=== PATIENT | female | born 1950 | race Caucasian/White ===

== ENCOUNTER 2024-10-13 16:28 | Outpatient (REF) | payer MEDICARE, SELFPAY ==
[2024-10-13 17:34] LABS: C Reactive Protein 0.55 mg/dL (< or = 0.50)
[2024-10-13 18:04] LABS: Erythrocyte Sedimentation Rate 3 MM/HR (0-20)
== END 2024-10-13 16:29 | disposition home or self-care (01) ==
LOC: HO.LAB 16:28
PROVIDERS: PCP Internal Medicine; Visit Provider Registered Nurse
DX: G43.909 Migraine, unspecified, not intractable, without status migrainosus (principal)
CPT/HCPCS: 36415; 85652; 86140

== ENCOUNTER 2025-05-29 13:55 | Outpatient (AMB) | payer MEDICARE, SELFPAY ==
--- NOTE | 2025-05-29 14:19 | MHC.OFFVIS ---
Vital Signs 05/29/25 14:19 Height 5 ft 4 in Intake Visit Reasons: bets Allergies No Known Allergies Allergy (Verified 05/29/25 14:30) Medication List - Last Reconciled 05/29/25 by Marge Marie CNP bupropion HCl XL 300 mg PO DAILY bupropion HCl XL 150 mg PO DAILY empagliflozin (Jardiance) 10 mg PO DAILY famotidine 20 mg PO BID fenofibrate 160 mg PO DAILY glipizide 10 mg PO BID lisinopril 5 mg PO DAILY metformin ER 1,000 mg PO DAILY mirtazapine 7.5 mg PO BEDTIME primidone 50 mg orally 1 tablet twice a day and 2 tablets at bedtime; propranolol 40 mg PO BID simvastatin 80 mg PO BEDTIME vibegron (Gemtesa) 75 mg PO DAILY HPI Comments Details: Tremors were still there. Medication helped some. Tremors were increased with stress. She was under stress related to living with her brother. No functional impairment. No difficulty eating or drinking. She stopped working with therapist. She had occasional stinging sensation to right leg and occasional warm feeling to right leg, most often at night. It last few minutes. There was no significant pain and it was not significantly bothersome. It did not disrupt sleep. No numbness or tingling. She was not monitoring her blood sugar and it had not been well controlled in the past. She said she was having ongoing low back pain from pinched nerve and said she was looking for drugs. It did not radiate into legs. She was referred to chiropractor from PCP and was waiting for appointment. She apparently saw pain management in the past and had injections which did not help. She was also having some arthritis pains in knees. She started with intermittent stinging sensation and warm feeling to right leg when laying down at night in the summer of 2023. Blood sugar not well controlled. She has hx of benign essential tremors for 12+ years getting worse lately and affecting her ability to write. Her tremors are long-standing and being treated with propranolol and primidone. Tremors increase when nervous. On 01/28/21 she was laid back flat for a dental procedure and when she was made to sit up, she collapsed backwards in the chair became sweaty with vertigo and vomiting. She could not get up. Gradually the symptoms went away. A week later she turned in the shower and suddenly the room spun around and she fell out of the shower. She's had minor lightheaded dizziness but no further vertigo lying in bed and getting up or turning. She has no hearing problems. [facility] Medical History (Updated 05/29/25 @ 14:39 by Marge Marie CNP) Migraine Peripheral neuropathy Benign essential tremor Review of Systems Const Denies chills, Denies daytime sleepiness, Reports difficulty sleeping, Denies fatigue, Denies fever(s), Denies frequent falls, Denies headache(s), Denies increased appetite, Denies poor appetite, Denies snoring, Denies weakness, Denies weight gain and Denies weight loss Eyes Denies loss of vision ENT Denies vertigo, Reports dizziness, Denies headache(s) and Denies neck pain Card Denies chest pain at rest, Denies chest pain with activity, Denies syncope, Denies leg edema, Denies palpitations, Denies dyspnea and Denies dyspnea on exertion Resp Denies cough, Denies dyspnea, Denies dyspnea on exertion and Denies snoring GI Denies abdominal pain, Denies constipation, Denies heartburn, Denies diarrhea and Denies nausea Denies urinary frequency, Denies urinary incontinence and Denies urinary urgency Musc Denies abnormal gait, Reports back pain, Reports myalgias, Denies arthralgias, Denies neck pain, Denies numbness and Denies tingling Neuro Denies abnormal gait, Denies vertigo, Reports dizziness, Denies syncope, Denies frequent falls, Denies headache(s), Denies lack of coordination, Denies loss of vision, Reports memory loss, Denies numbness, Denies Other visual disturbances, Denies restless legs, Denies seizure-like activity, Denies tingling, Denies paresthesias, Reports tremor(s) and Denies weakness Psych Reports anxiety, Reports depression, Denies auditory hallucinations, Reports memory loss and Denies visual hallucinations Endo Denies fatigue and Denies palpitations Physical Exam Const Other: General Appearance:? normal, in no acute distress. Heart:? S1, S2 normal, no murmurs. Lungs:? clear anteriorly and posteriorly. Musculoskeletal:? normal. Extremities:? no edema. Psych:? alert, oriented, cognitive function intact, cooperative with exam. Neuro Other: Abnormal Neurological Findings:?Tremors of her head and upper extremities right greater than left 8 Hz frequency moderate amplitude. No cogwheel rigidity or bradykinesia. DTRs trace. Decreased vibration and pinprick?to mid tarsal bilaterally. In wheelchair Mental Status: alert and oriented X 3. Normal attention, orientation, memory, and affect. Cranial Nerves: Pupils are equal, round, and reactive to light. External ocular muscles are intact. Visual moreno are full, no ptosis. Face is symmetrical, no facial weakness or droop. Facial sensations are normal. Tongue protrudes in midline. Palate elevates symmetrically. Shoulder shrugging is normal Motor Examination: DTRs trace. Plantars are flexor. Straight Leg Raisin degrees. Sensory Exam: Decreased vibration and pinprick to BLE Coordination: No ataxia. No titubation. Qibsgc-[id number], rrcx-dqcr-thyr test, and rapid alternating movements were normal. Gait Exam: In wheelchair Cerebellar Signs: [id number] is okay. Extrapyramidal System: Tremor as above. No rigidity with normal facial expressions. No bradykinesia. No bradyphrenia. Normal arm swing and posture. No propulsion or retropulsion. Speech: Normal. No dysphasia or dysarthria. Assessment & Plan Assessment & Plan (1) Benign essential tremor: Code(s): G25.0 - Essential tremor Category: Medical Plan: Continue propranolol 40mg 1 tablet twice a day. Continue primidone 50mg 1 tablet twice a day and 2 tablets at bedtime. (2) Peripheral neuropathy: Code(s): G62.9 - Polyneuropathy, unspecified Category: Medical Qualifiers: Peripheral neuropathy type: polyneuropathy, unspecified Qualified Code(s): G62.9 - Polyneuropathy, unspecified Plan: No significant pain or discomfort and medication was not indicated at this time. Control blood sugar. Stay physically active. Coding Level of Care Code Est Pt Level 4 (37395) Diagnoses Benign essential tremor G25.0 Peripheral polyneuropathy G62.9 Peripheral neuropathy type: polyneuropathy, unspecified
--- OUTSIDE RECORDS SUMMARY | 2025-05-29 14:47 | XMS_ITS | Clinical Summary ---
Author Organization [facility] Address [address] [place] [id number] Phone Care Team Providers Care Pier Master Name Role Phone Colin Joyner MD Primary Care Provider [phone] Social History Tobacco Use Types Packs/Day Years Used Date Smoking Tobacco: Never Assessed Education Answer Date Recorded Are you interested in more education? Not on jorge e 03/06/2023 Are you concerned about learning? Not on file 03/06/2023 No 03/06/2023 No 03/06/2023 Digital Access Answer Date Recorded No 04/07/2023 No 04/07/2023 Reliable internet access at home? Not on file 04/07/2023 Device with a working camera? Not on file Comments Unknown Sex and Gender Information Value Date Recorded Sex Assigned at Not on file Legal Sex Female 10:21 AM EDT Gender Identity Not on file Sexual Orientation Not on file Plan of Treatment Not on file Medical Devices Not on file Insurance [employer] Member Subscriber Plan / Payer (Ef fective 2020-Present) Name:Kiesha Kothari Relation to Subscriber:Self Name:Kiesha Kothari Payer ID:[id number] (NAIC) Type:Medicare Address: [place] [id number] [place] [employer] Member Subscriber Plan / Payer (Ef fective 2020-Present) Name:Kiesha Kothari Relation to Subscriber:Self Name:Kiesha Kothari Payer ID:[id number] (NAIC) Type:Medicare Address: [place] [id number] [place] [employer] [place] [place] [employer] [place] [employer] [facility] [place] [facility] Care Teams Pier Master Relationship Specialty Start Date End Date Colin Joyner MD [address] [place] [id number] PCP - General Internal Medicine 05/21/20 Additional Source Comments The information contained in this document represents components of the legal health record. It is not the complete legal health record.[facility]
--- OUTSIDE RECORDS SUMMARY | 2025-05-29 14:47 | XMS_ITS | Clinical Summary ---
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 04/21/20 24 Active cyanocobalamin (VITAMIN B-12) 100 mcg tablet Take 1 tablet (100 mcg total) by mouth 2 (two) times a day. Active primidone (MYSOLINE) 50 mg tablet Take 1 tablet (50 mg total) by mouth. 02/25/20 24 Active propranoloL (INDERAL) 40 mg tablet Take 1 tablet (40 mg total) by mouth 2 (two) times a day. 04/21/20 24 Active blood-glucose meter kit To check blood sugars daily 06/02/20 23 Active lancets 21 gauge misc Use to test blood sugar twice daily / test fasting am and 2 hours after dinner / DX: E11.29 02/21/20 23 Active multivitamin tablet Take 1 tablet by mouth 1 (one) time each day. 12/01/20 23 Active blood sugar diagnostic (LurnQ Verio test strips) test strip USE TO TEST BLOOD SUGAR TWICE DAILY / TEST FASTING IN MORNING AND 2 HOURS AFTER DINNER 07/01/20 23 Active EpiPen 2-Syd 0.3 mg/0.3 mL injection Inject 0.3 mL (0.3 mg total) into the thigh. 07/05/20 24 Active escitalopram (LEXAPRO) 5 mg tablet Take 1 tablet (5 mg total) by mouth 1 (one) time each day in the morning. 03/10/20 24 Active vibegron (Gemtesa) 75 mg tablet tablet Take 1 tablet (75 mg total) by mouth 1 (one) time each day. Active loratadine (CLARITIN) 10 mg tablet Take 1 tablet (10 mg total) by mouth 1 (one) time each day. 90 each 1 10/12/20 24 Active propranoloL (INDERAL) 10 mg tabletIndicatio ns:Essential tremor TAKE 1 TABLET BY MOUTH TWICE A DAY 180 tablet 1 11/08/20 24 Active buPROPion XL (WELLBUTRIN XL) 150 mg 24 hr tablet Take 1 tablet (150 mg total) by mouth 1 (one) time each day. 90 tablet 1 11/22/19 25 Active Jardiance 10 mg tablet TAKE 1 TABLET BY MOUTH EVERY DAY 90 tablet 1 12/27/19 25 Active simvastatin (ZOCOR) 80 mg tablet TAKE 1 TABLET BY MOUTH EVERYDAY AT BEDTIME 90 tablet 1 12/27/19 25 Active metFORMIN XR (GLUCOPHAGE-XR) 500 mg 24 hr tablet TAKE 2 TABLETS (1,000 MG TOTAL) BY MOUTH 1 (ONE) TIME EACH DAY. 180 tablet 02/01/20 25 Active fenofibrate (LOFIBRA) 160 mg tabletIndicatio ns:Pure hypercholestero lemia, unspecified TAKE 1 TABLET BY MOUTH EVERY DAY 90 tablet 1 03/06/20 25 Active lisinopriL (PRINIVIL,ZESTR IL) 2.5 mg tablet Take 2 tablets (5 mg total) by mouth 1 (one) time each day. 90 tablet 1 03/06/20 25 Active famotidine (PEPCID) 20 mg tablet Take 1 tablet (20 mg total) by mouth 2 (two) times a day. 90 tablet 1 03/29/20 25 Active Skyrizi 150 mg/mL pen injector INJECT ONE PEN UNDER THE SKIN EVERY 12 WEEKS FOR MAINTANENCE 01/27/20 25 Active diclofenac (VOLTAREN) 1 % topical gel Apply 1 g topically 1 (one) time each day. 50 g 1 04/19/20 25 Active buPROPion XL (WELLBUTRIN XL) 300 mg 24 hr tablet TAKE 1 TABLET BY MOUTH 1 TIME EACH DAY. 90 tablet 05/09/20 25 Active glipiZIDE (GLUCOTROL) 10 mg tablet TAKE 1 TABLET BY MOUTH 2 TIMES A DAY BEFORE MEALS. 180 tablet 05/09/20 25 Active buPROPion XL (WELLBUTRIN XL) 300 mg 24 hr tablet Take 1 tablet (300 mg total) by mouth 1 (one) time each day. 90 tablet 1 10/27/20 24 025 Discontinued glipiZIDE (GLUCOTROL) 10 mg tablet Take 1 tablet (10 mg total) by mouth 2 (two) times a day before meals. 60 each 5 11/01/20 24 025 Discontinued Active Problems Problem Noted Date Diagnosed Date Lumbar degenerative disc disease 06/10/2023 Overview (08/11/2024): Last Assessment & Plan: Ms. Patel describes years of low back pain worse whenever she is standing or walking or active. Her MRI of the lumbar spine shows desiccation and significant loss of disc height at L2-3, L3-4, and L4-5. She really would not consider surgical intervention and I do not think that a 3 level lumbar fusion would be on offer from Dr. Candelaria. We talked about conservative measures including NSAIDs, acupuncture, physical therapy, yoga, and inversion table, getting as close as possible to her ideal body weight, and chiropractic treatment. She accepted a paper on Natural Anti-inflammatory Agents for Pain Relief in Athletes as well as a prescription for physical therapy. She is welcome to follow-up with us in the future on an as- needed basis. Assessment & Plan (09/21/2024 12:19 PM EST): Advised her to follow-up with physiatry. She also has an upcoming appoint with rheumatology. Tubular adenoma 01/02/2023 Adrenal adenoma, left 09/29/2022 Assessment & Plan (01/02/2025 10:04 AM EST): Currently being monitored by endocrinology for her adrenal adenoma. I have strongly advised the patient to contact her putty glazer. Fibroid 09/29/2022 Sleep disorder 08/29/2022 Overview (08/11/2024): Last Assessment & Plan: We do not have the sleep study but patient states that she was diagnosed with sleep apnea. 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 Recurrent cold sores 07/18/2022 Abnormal stress test 07/10/2022 History of COVID-19 02/25/2022 Primary osteoarthritis of both knees 07/26/2021 Heart murmur 05/24/2021 Overview (08/11/2024): Last Assessment & Plan: She has no aortic valve stenosis. The murmur is likely caused by the combination of valvular calcification and elevated LVOT gradient. The murmur today is not as loud as last office visit. Hydration and beta-saud will be helpful for this condition. PVC's (premature ventricular contractions) 03/18 Overview (08/11/2024): Last Assessment & Plan: Left ventricular size and systolic function are normal. She has no symptoms to suggest ischemia. Her heart rate is running on lower side overall. We will continue low-dose propranolol. Syncope 03/14/2021 Positive AMANDA (antinuclear antibody) 01/31/2020 Tremor, essential 01/31/2020 Assessment & Plan (01/02/2025 10:04 AM EST): Advised to follow-up with her neurologist. Continue propranolol and primidone. Hypertension 04/13/2018 Assessment & Plan (01/02/2025 10:04 AM EST): Follow low-sodium diet. Continue lisinopril. She is also on propranolol which helps with her tremors and blood pressure. Assessment & Plan (09/21/2024 12:19 PM EST): She follow low-sodium diet. Continue current regimen of lisinopril. Type 2 diabetes mellitus wit h renal manifestations ([facility] V24, [facility] V28) 04/13/2018 Assessment & Plan (01/02/2025 10:04 AM EST): Diabetic diet discussed. Continue current regimen of metformin, glipizide, Jardiance. She is on MALIKA inhibitor for microalbuminuria. Orders: Hemoglobin A1c; Future Comprehensive metabolic panel; Future Assessment & Plan (09/21/2024 12:19 PM EST): Diabetic diet discussed. She will continue current regimen of metformin, glipizide, Januvia. She is on an MALIKA inhibitor for microalbumin. Orders: Microalbumin, protein and creatinine with ratio, urine, random; Future Vitamin D deficiency 02/04/2018 CKD (chronic kidney disease) , stage III ([facility] V24, [facility] V28) 02/03/2018 Hypercholesterolemia 02/03/2018 Assessment & Plan (01/02/2025 10:04 AM EST): Follow low-cholesterol diet. Continue simvastatin, fenofibrate. Her total cholesterol and LDL are normal but your triglycerides are still elevated at 320. Patient's LFTs are normal. Assessment & Plan (09/21/2024 12:19 PM EST): She will follow low-cholesterol diet. Continue current meds simvastatin. Recurrent major depression ([facility] V24) 018 Diverticulosis 09/22/2017 Overview (08/11/2024): Diverticulitis 09/22/2017 Hearing loss 12/07/2012 Cholelithiasis 01/14/2012 Fatty liver 05/14/2011 Encounters Date Type Department Care Team Description 05/22/2025 Telephone [facility] [address] [place] [address] Colin Joyner MD Referral 05/17/2025 Telephone [facility] - [facility] [address] [place] [address] Colin Joyner MD Fitting for DME (Faxed Dme from [facility]) 05/15/2025 [facility] [address] [phone] Colin Joyner MD Fitting for DME ([facility]) 05/15/2025 [facility] [address] [phone] Colin Joyner MD information needed about otc medicine 05/11/2025 [facility] [address] [phone] Colin Joyner MD Glucose Monitor 05/09/2025 [facility] [address] [phone] Colin Joyner MD MED REVIEW APPT 05/01/2025 [facility] [address] [phone] Roxi Colon [place] Medicare Annual Wellness Visit Subsequent (AWV DUE after 03/28/2025) 04/26/2025 [facility] [address] [phone] Colin Joyner MD faxed DME ([facility]) 04/12/2025 [facility] [address] [phone] Colin Joyner MD Medication Problem 04/11/2025 10:30 AM EDT Office Visit Walk-In Clinic - [address] [phone] Milo Murillo PA Bronchitis (Primary Dx) 04/11/2025 [facility] [address] [phone] Colin Joyner MD Cough 04/07/2025 Telephone Internal Medicine - [address] [phone] Coiln Joyner MD Cough 04/06/2025 Telephone Internal Medicine - [address] [phone] Colin Joyner MD DME DENIAL 03/30/2025 Telephone Internal Medicine [address] [phone] Colin Joyner MD Cough 03/28/2025 Telephone Internal Medicine [address] [phone] Colin Joyner MD Chills 03/27/2025 10:30 AM EDT Office Visit Internal Medicine [address] [phone] Sandee Carrion NP Abdominal pain, unspecified abdominal location (Primary Dx); Nausea and vomiting, unspecified vomiting type; Acute gastroenteritis 03/27/2025 Telephone Internal [address] [phone] Colin Joyner MD Vomiting; Abdominal Pain 03/26/2025 5:21 PM EDT - 03/26/2025 8:47 PM EDT Emergency [facility] [address] [place] [address] Gagan Ahmadi MD Discharge Disposition: Left Against Medical Advice 03/23/2025 Telephone Internal Medicine [address] [phone] Colin Joyner MD Nasal Congestion (RUNNY NOSE when eating) 03/17/2025 Telephone Internal Medicine [address] [phone] Colin Joyner MD DME Request ([facility]) 03/13/2025 Telephone [facility] [address] [place] [address] Colin oJyner MD Referral (EXTERNAL DERMATOLOGY ) from Last 3 Months Immunizations Name Administration Dates Next Due H1N1 Inj Preservative Free 12/05/2009 Influenza trivalent, 0.5mL ( Fluad) 65yo and older 01/02/2025 Influenza trivalent, 0.5mL ( Fluzone High-dose) 65yo and older 07/31/2023,07/18/2022,07/26/2021,07/16 Influenza, Unspecified 07/10/2020 Pfizer (ages 12 & older) Biv alent, COVID-19 11/15/2022 Pfizer SARS-CoV-2 COVID-19, mRNA, LNP-S, preservative free 06/29/2022 Pneumococcal conjugate 13 va lent (Prevnar 13, PCV13) 2mo and older 07/30/2016 Pneumococcal polysaccharide 23 valent (Pneumovax 23) 2yo and older 12/08/2019,06/24/2012,03/30/2007 Tdap Tetanus diptheria acell ular pertussis (Boostrix; Adacel) 7yo and older 06/10/2014,05/05/2007 Zoster Live 06/13/2011 Surgical History Surgery Date Site/Laterality Comments MULTIPLE TOOTH EXTRACTIONS PROCEDURE: HISTORICAL DENTAL EXTRACTION Medical History Medical History Date Comments Arthritis 02/03/2018 DX:Arthritis Cholelithiasis 01/14/2012 DX:Cholelithiasi s CKD (chronic kidney disease) , stage III ([facility] V24, [facility] V28) 02/03/2018 DX:CKD (chronic kidney dise ase), stage III (HCC) Fatty liver 05/14/2011 DX:Fatty liver Foreign body in right foot 04/14/2018 DX:Fo reign body in right foot Hearing loss 12/07/2012 DX:Hearing loss Hypercholesterolemia 02/03/2018 DX:Hypercho lesterolemia Hypertension 04/13/2018 DX:Hypertension Obesity 01/30/2017 DX:Obesity Recurrent major depression ([facility] V24) 02/04/20 18 DX:Recurrent major depression (HCC) Type 2 diabetes mellitus wit h renal manifestations ([facility] V24, [facility] V28) 04/13/2018 DX:Type 2 diabetes mellitus with renal manifestations ([facility]) Vitamin D deficiency 02/04/2018 DX:Vitamin D deficiency Diverticulosis 09/22/2017 DX:Diverticulosi s; COMMENT: Diverticulitis 09/22/2017 Tremor, essential 01/31/2020 DX:Tremor, ess ential Medical orders for life-sust aining treatment (MOLST) form in chart 12/15/2022 DX:Medical orders for life-sustaining treatment (MOLST) form in chart; COMMENT: MOLST form completed 12/15/2022 Cardiopulmonary resuscitation - attempt resuscitation Ventilation for a patient in respiratory distress - do not intubate or ventilate and use noninvasive ventilation (CPAP) Transfer to hospital - do not transfer to hospital (unless needed for comfort) Dialysis - use dialysis but short ter* Family History Medical History Relation Name Comments Schizophrenia Brother Colon cancer Father in his 80's Heart attack Father Brain Aneurysm Mother Breast cancer Mother Crohn's disease Mother Breast cancer Sister 1 Depression Sister 1 Alcohol abuse Sister 2 IBS,cirrhosis, breast cancer No Known Problems Sister 3 Relation Name Status Comments Brother Alive Father Maternal Grandfather Maternal Grandmother Mother Paternal Grandfather Paternal Grandmother Sister 1 Sister 2 Sister 3 Alive Social History Tobacco Use Types Packs/Day Years Used Date Smoking Tobacco: Never Smokeless Tobacco: Never Tobacco Cessation:Counseling Given: Not Answered Alcohol Use Standard Drinks/Week Comments No 0 (1 standard drink = 0.6 oz pur e alcohol) Comments No Sex and Gender Information Value Date Recorded Sex Assigned at Not on file Legal Sex Female 8:32 AM EST Gender Identity Not on file Sexual Orientation Not on file Obstetrics History Last Filed Vital Signs Vital Sign Reading Time Taken Comments Blood Pressure 110/74 04/11/2025 10:48 AM EDT Pulse 54 04/11/2025 10:48 AM EDT Temperature 36.6 C (97.8 F) 04/11/2025 10:48 AM EDT Respiratory Rate 18 03/26/2025 6:35 PM EDT Oxygen Saturation 94% 04/11/2025 10:48 AM EDT Inhaled Oxygen Concentration - - Weight 95.4 kg (210 lb 6.4 oz) 03/27/2025 10:04 AM EDT Height 160 cm (5' 3 ) 03/27/2025 10:04 AM EDT Body Mass Index 37.27 03/27/2025 10:04 AM EDT Plan of Treatment Upcoming Encounters Date Type Department Care Team (Late st Contact Info) Description 06/09/2025 1:15 PM EDT Office Visit Internal Medicine - [address] [phone] Mago Valencia, BECKA [address] [place] [phone] 09/05/2025 11:45 AM EDT Office Visit Nephrology - [address] [phone] Kolton Rashid MD [address] [phone] 10/10/2025 2:00 PM EST Office Visit Endocrinology - [address] [phone] Marie Galeas PA [address] [place] [address] Health Maintenance Due Date Last Done Comments Diabetes: Annual Foot Exam 1961 RSV Immunization Adult Patients (1 - Risk 60-74 years 1-dose series) 2011 Zoster Vaccines (1 of 2) 08/08/2011 06/13/2011 Falls Risk Assessment 10/18/2022 Medicare Annual Wellness Visit 10/18/2022 Social Influencers of Health Screening 10/18/2022 COVID-19 Vaccine ( season) 2024 11/15/2022, 06/29/2022, 02/25/2021, Additional history exists Diabetes: Annual Urine Albumin-Creatinine Ratio (uACR) 07/31/2024 07/31/2023 Depression Screening 11/09/2024 Diabetes: Blood Sugar Control Test (HGBA1C) 04/20/2025 10/20/2024, 06/29/2024, 06/29/2024, Additional history exists Diabetes: Annual Retina Eye Exam 06/08/2025 06/08/2024 Influenza Vaccine (#1) 2025 , 07/31/2023, 07/18/2022, Additional history exists Diabetes: Annual GFR (Glomerular Filtration Rate) 03/26/2026 03/26/2025, 06/29/2024, 06/29/2024, Additional history exists Hypertension/CHF/CAD Annual BMP Blood Test 03/26/2026 03/26/2025, 06/29/2024, 06/29/2024, Additional history exists Breast Cancer Screening 10/14/2026 10/14/20, 03/23/2023, 03/19/2022, Additional history exists Colorectal Cancer Screening: Colonoscopy 09/10/2028 09/10/2023 Cholesterol Screening (Lipid Panel) 04/20/2029 04/20/2024, 04/20/2024 Osteoporosis Screening (Bone Density Screening) 06/25/2033 06/25/2023, 05/02/2019 DTaP,Tdap,and Td Vaccines (4 - Td or Tdap) 06/29/2034 06/29/2024, 06/10/2014, 05/05/2007 Pneumococcal Vaccine: 50+ Years Completed 12/08/2019, 07/30/2016, 06/24/2012, Additional history exists Hepatitis C Screening Completed 05/21/2020, 020 HIB Vaccines Aged Out No longer eligi ble based on patient's age to complete this topic HPV Vaccines Aged Out No longer eligi ble based on patient's age to complete this topic Hepatitis A Vaccines Aged Out No long er eligible based on patient's age to complete this topic Hepatitis B Vaccines Aged Out No long er eligible based on patient's age to complete this topic IPV Vaccines Aged Out No longer eligi ble based on patient's age to complete this topic MMR Vaccines Aged Out No longer eligi ble based on patient's age to complete this topic Meningococcal ACWY Vaccine Aged Out N o longer eligible based on patient's age to complete this topic Meningococcal B Vaccine Aged Out No l onger eligible based on patient's age to complete this topic RSV Immunization Patients Under 20 months Aged Out No longer eligible based on patient's age to complete this topic Varicella Vaccines Aged Out No longer eligible based on patient's age to complete this topic Procedures Procedure Name Priority Date/Time Associated Diagnosis Comments CBC WITH AUTO DIFFERENTIAL STAT 03/26/2025 5:15 PM EDT LIPASE STAT 03/26/2025 5:15 PM EDT COMPREHENSIVE METABOLIC PANEL STAT 03/26/2025 5:15 PM EDT CBC AND DIFFERENTIAL STAT 03/26/2025 5:15 PM EDT HEMOGLOBIN A1C Routine 10/20/2024 8:46 AM EST Type 2 diabetes mellitus with diabetic microalbuminuria, without long-term current use of insulin ([facility] V24, [facility] V28) MAMMO DIGITAL SCREENING W HOWARD BILAT Routine 10/14/2024 1:28 PM EST Encounter for screening mammogram for malignant neoplasm of breast DIABETES EYE EXAM Routine 06/08/2024 LIPID PANEL Routine 04/20/2024 COLONOSCOPY Routine 09/10/2023 URINE ALBUMIN CREATININE RATIO Routine 07/31/2023 DXA BONE DENSITY STUDY 1+ SITS AXIAL SKEL Routine 06/25/2023 2:32 PM EDT Encounter for screening for osteoporosis HEPATITIS C SCREENING Routine 12/22/2019 from Last 3 Months or Most Recently Relevant to Health Maintenance Results * (ABNORMAL) CBC auto differential (03/26/2025 5:15 PM EDT) WBC 11.6(H) 4.8 - 10.8 K/[facility] HEMETOLOGY METHOD 03/26/2025 5:44 PM EDT [facility] RBC 5.70(H) 3.80 - 4.80 M/[facility] LAB HEMETOLOGY METHOD 03/26/2025 5:44 PM EDT [facility] Hemoglobin 16.6(H) 11.5 - 16.0 g/dL LAB HEMETOLOGY METHOD 03/26/2025 5:44 PM EDT [facility] Hematocrit 50.4(H) 35.0 - 47.0 % LAB HEMETOLOGY METHOD 03/26/2025 5:44 PM EDT [facility] MCV 88.3 79.0 - 98.0 FL LAB HEMETOLOGY METHOD 03/26/2025 5:44 PM EDT [facility] MCH 29.1 27.0 - 32.0 pcg LAB HEMETOLOGY METHOD [facility] MCHC 32.9 32.0 - 37.0 g/dL LAB HEMETOLOGY METHOD 03/26/2025 5:[address] [facility] RDW 13.2 11.0 - 15.0 % LAB HEMETOLOGY METHOD 03/26/2025 5:44 PM EDT [facility] Platelets 300 130 - 400 K/mcL LAB HEMETOLOGY METHOD 03/26/2025 5:[address] [facility] MPV 9.5 7.0 - 11.0 FL LAB HEMETOLOGY METHOD 03/26[facility]2025 [facility] NRBC 0.0 <1.0 % LAB HEMETOLOGY METHOD 03/26/2025 5:44 PM EDT [facility] NRBC Absolute 0.00 <0.10 K/mcL LAB HEMETOLOGY METHOD 03/26/2025 5:[facility] Neutrophils Relative 73.3 % LAB HEMETOLOGY METHOD 03/26/2025 5:[facility] Lymphocytes Relative 18.9 % LAB HEMETOLOGY METHOD 03/26/2025 5:44 PM EDT [facility] Monocytes Relative 6.7 % LAB HEMETOLOGY METHOD 03/26/2025 5:44 PM EDT [facility] Eosinophils Relative 0.4 % LAB HEMETOLOGY METHOD 03/26/2025 5:44 PM EDT [facility] Basophils Relative 0.3 % LAB HEMETOLOGY METHOD 03/26/2025 5:44 PM EDT [facility] Immature Granulocytes Relative 0.4 % LAB HEMETOLOGY METHOD 03/26/2025 5:44 PM EDT [facility] Neutrophils Absolute 8.49(H) 1.50 - 7.00 K/mcL LAB HEMETOLOGY METHOD 03/26/2025 5:[facility] Lymphocytes Absolute 2.19 1.00 - 5.00 K/mcL LAB HEMETOLOGY METHOD 03/26/2025 5:44 PM EDT [facility] Monocytes Absolute 0.78 0.20 - 1.00 K/mcL LAB HEMETOLOGY METHOD 03/26/2025 5:44 PM EDT [facility] Eosinophils Absolute 0.05 0.00 - 0.50 K/mcL LAB HEMETOLOGY METHOD 03/26/2025 5:44 [facility] Basophils Absolute 0.04 0.00 - 0.20 K/mcL LAB HEMETOLOGY METHOD 03/26/2025 5:44 PM EDT [facility] Immature Granulocytes Absolute 0.05(H) 0.00 - 0.03 K/mcL LAB HEMETOLOGY METHOD 03/26/2025 5:[address] [facility] Blood Venous blood specimen / Unknown Venipuncture / Unknown 03/26/2025 5:15 PM EDT 03/26/2025 5:37 PM EDT Celso Bethea MD LAB BLOOD ORDERABLES Final Res ult [facility] [address] [place] [address], [place] [phone] * Lipase (03/26/2025 5:15 PM EDT) [facility] Lipase 27 13 - 75 unit/L LAB CHEMISTRY METHOD 03/26/2025 6:16 PM EDT [facility] Blood Venous blood specimen / Unknown Venipuncture / Unknown 03/26/2025 5:15 PM EDT 03/26/2025 5:37 PM EDT Celso Bethea MD LAB BLOOD ORDERABLES Final Res ult Performing Organization Address [facility]/ZIP Co de Phone Number [facility] [address] [place] [address], [place] [phone] * (ABNORMAL) Comprehensive metabolic panel (03/26/2025 5:15 PM EDT) [facility] Sodium 134 133 - 145 mmol/L LAB CHEMISTRY METHOD 03/26/2025 6:[address] [facility] Potassium 4.2 3.5 - 5.5 mmol/L LAB CHEMISTRY METHOD 03/26/2025 6:[address] [facility] Chloride 105 96 - 110 mmol/L LAB CHEMISTRY METHOD 03/26/2025 6:16 PM T [facility] CO2 21 21 - 32 mmol/L LAB CHEMISTRY METHOD 03/26/2025 6:16 PM T [facility] Anion Gap 8 3 - 11 LAB CHEMISTRY METHOD 03/26/2025 6:[address] [facility] Glucose 223(H) 70 - 100 mg/dL LAB CHEMISTRY METHOD 03/26/2025 6:[address] [facility] BUN 28(H) 5 - 25 mg/dL LAB CHEMISTRY METHOD 03/26/2025 6:[address] [facility] Creatinine 0.96 0.50 - 1.10 mg/dL LAB CHEMISTRY METHOD 03/26/2025 6:[address] [facility] eGFR 62 >=60 mL/min/1. 73m2 LAB CHEMISTRY METHOD 03/26/2025 6:[address] [facility] Comment:Calculation based on the Chronic Kidney Disease Epidemiology Collaboration (CKD-EPI) equation refit without adjustment for race. BUN/Creatinine Ratio 29.2 LAB CHEMISTRY METHOD 03/26/2025 6:[address] [facility] Calcium 10.0 8.5 - 10.5 mg/dL LAB CHEMISTRY METHOD 03/26/2025 6:[address] [facility] AST (SGOT) 26 10 - 42 unit/L LAB CHEMISTRY METHOD 03/26/2025 6:[address] [facility] ALT (SGPT) 33 10 - 60 unit/L LAB CHEMISTRY METHOD 03/26/2025 6:[address] [facility] Alkaline Phosphatase 90 42 - 121 unit/L LAB CHEMISTRY METHOD 03/26/2025 6:[address] [facility] Total Protein 7.8 6.0 - 8.0 g/dL LAB CHEMISTRY METHOD 03/26/2025 6:[address] [facility] Albumin 4.2 3.2 - 5.0 g/dL LAB CHEMISTRY METHOD 03/26/2025 6:[address] [facility] Total Bilirubin 0.5 0.0 - 1.4 mg/dL LAB CHEMISTRY METHOD 03/26/2025 6:[address] [facility] Blood Venous blood specimen / Unknown Venipuncture / Unknown 03/26/2025 5:15 PM EDT 03/26/2025 5:37 PM EDT us Celso Bethea MD LAB BLOOD ORDERABLES Final Res ult [facility] [address] [place] [address], [place] [phone] * (ABNORMAL) Hemoglobin A1c (10/20/2024 8:46 AM EST) Hemoglobin A1C 7.5(H) <6.5 % LAB CHEMISTRY METHOD 10/20/2024 12:09 PM EST [facility] Mean Bld Glu Estim. 169 mg/dL LAB CHEMISTRY METHOD 10/20/2024 12:09 PM EST [facility] Blood Venous blood specimen / Unknown Venipuncture / Unknown 10/20/2024 8:46 AM EST 10/20/2024 8:46 AM EST us Marie ZHENG LAB BLOOD ORDERABLES Final Resul t [facility] [address] [place] [address], [place] [phone] * MG Mammo Digital Screening w Howard bilat (10/14/2024 1:28 PM EST) Anatomical Region Laterality Modality Breast Bilateral Mammography 10/14/2024 2:59 PM EST Impressions 10/14/2024 3:24 PM EST No evidence of breast malignancy. BI-RADS CATEGORY: 1 - NEGATIVE RECOMMENDATION: Screening bilateral mammogram is recommended in 1 year. Mammo Location: [facility], [address] [place] [address], [id number], . -------- FINAL REPORT -------- Dictated By: Amber Miguel Dictated Date: 10/14/2024 14:59 ET Assigned Physician: Amber Miguel Reviewed and Electronically Signed By: Amber Miguel Signed Date: 10/14/2024 15:24 ET Workstation ID: [id number] Transcribed By: Self Edit Transcribed Date: 10/14/2024 15:01 ET Narrative 10/14/2024 3:24 PM EST CLINICAL: 74 years old, Female, routine annual exam. COMPARISON: 03/23/2023, 03/19/2022, 06/29/2020 and 04/25/2019 TECHNIQUE: Bilateral MLO and CC views were obtained digitally with 3-D mammogram (digital breast tomosynthesis). Computer-aided detection was utilized in evaluation of this exam (CAD). FINDINGS: There is no evidence of suspicious mass or architectural distortion. No worrisome calcifications are evident. There has been no significant change from prior exam(s). BREAST DENSITY: A - The breasts are almost entirely fatty. Procedure Note Amber Miguel MD - 10/14/2024 CLINICAL: 74 years old, Female, routine annual exam. COMPARISON: 03/23/2023, 03/19/2022, 06/29/2020 and 04/25/2019 TECHNIQUE: Bilateral MLO and CC views were obtained digitally with 3-Dmammogram (digital breast tomosynthesis). Computer-aided detection wasutilized in evaluation of this exam (CAD). FINDINGS: There is no evidence of suspicious mass or architectural distortion. Noworrisome calcifications are evident. There has been no significantchange from prior exam(s). BREAST DENSITY: A - The breasts are almost entirely fatty. IMPRESSION: No evidence of breast malignancy. BI-RADS CATEGORY: 1 - NEGATIVE RECOMMENDATION: Screening bilateral mammogram is recommended in 1 year. Mammo Location: [facility], [address] [place] [address], [facility], . -------- FINAL REPORT -------- Dictated By: Amber Miguel Dictated Date: 10/14/2024 14:59 ET Assigned Physician: Amber Miguel Reviewed and Electronically Signed By: Amber Miguel Signed Date: 10/14/2024 15:24 ET Workstation ID: [id number] Transcribed By: Self Edit Transcribed Date: 10/14/2024 15:01 ET Colin Joyner MD IMG BI PROCEDURES Final R esult * Hm Diabetes Eye Exam (06/08/2024) Diabetes: Annual Retina Eye Exam abstracted Historical Provider HEALTH MAINTENANCE Final Result * (ABNORMAL) Lipid panel (04/20/2024) [facility] LDL/HDL Ratio 4 0 - 4 Triglycerides 320(A) 0 - 150 mg/dL Cholesterol 193 0 - 200 mg/dL HDL 52 >=40 mg/dL LDL Cholesterol 77 0 - 100 mg/dL Blood Venous blood specimen / Unknown Historical Provider MD LAB BLOOD ORDERABLES Jasmin l Result * Colonoscopy (09/10/2023) [facility] [place] Colonoscopy no interpretation , abstracted Anatomical Region Laterality Modality Other [facility] Provider MD HEALTH MAINTENANCE Final Result * Urine Albumin Creatinine Ratio (07/31/2023) [facility] Urine Albumin Creatinine Ratio abstracted [facility] Provider MD HEALTH MAINTENANCE Final Result * DXA BONE DENSITY STUDY 1+ SITS AXIAL SKEL (06/25/2023 2:32 PM EDT) Anatomical Region Laterality Modality Bone Densitometr y 12/15/2022 10:3 9 AM EST Narrative 06/25/2023 6:25 PM EDT BONE DENSITY SCAN (DEXA) FINDINGS: Lumbar Spine L1, L3, and L4, L2 excluded due to sclerotic changes T-score is 3.2. (SD relative to 20-29 y/o adult) Z-score is 5.5. (SD relative to age matched peers) This is considered normal by WHO criteria. Left Hip T-score is -0.3. Z-score is 1.6. This is considered normal by WHO criteria. Comparison: 05/02/2019. No statistically significant change in bone mineral density. IMPRESSION: IMPRESSION: Normal bone mineral density by WHO criteria. The [facility] Department of Internal Medicine recommends using National Osteoporosis Foundation (NOF) guidelines in treatment decisions related to osteoporosis. NOF guidelines suggest considering treatment for postmenopausal women and men aged 50 or older presenting with the following: History of hip or vertebral fracture. T-score = -2.5 (DXA) at the femoral neck, total hip, or spine, after appropriate evaluation to exclude secondary causes. Low bone mass (T-score between -1.0 and -2.5 at the femoral neck or spine) AND a 10-year probability of a hip fracture = 3% OR a 10-year probability of a major osteoporosis-related fracture = 20% based on the [place]-adapted WHO algorithm Please note that all treatment decisions require clinical judgment and consideration of individual patient factors, including patient preferences, co-morbidities, previous drug use, risk factors not captured in the FRAX model (e.g., frailty, falls, vitamin D deficiency, increased bone turnover, interval significant decline in bone density) and possible under- or over-estimation of fracture risk by FRAX. Optional alternative screening schedule based on magali Nolasco., [facility] November 27, 2011 for patients with osteopenia (based on hip BMD T-score) is as follows: * advanced osteopenia (T scores -2.00 to -2.49), BMD testing every year * moderate osteopenia (T scores -1.50 to -1.99), BMD testing every 5 years mild osteopenia or normal BMD (T scores -1.50 and higher), BMD testing every 15 years Procedure Note Giovanna Truong MD - 12/14/2023 BONE DENSITY SCAN (DEXA) FINDINGS: Lumbar Spine L1, L3, and L4, L2 excluded due to sclerotic changes T-score is 3.2. (SD relative to 20-29 y/o adult) Z-score is 5.5. (SD relative to age matched peers) This is considered normal by WHO criteria. Left Hip T-score is -0.3. Z-score is 1.6. This is considered normal by WHO criteria. Comparison: 05/02/2019. No statistically significant change in bonemineral density. IMPRESSION: IMPRESSION: Normal bone mineral density by WHO criteria. The [facility] Department of Internal Medicine recommendsusing National Osteoporosis Foundation (NOF) guidelines in treatment decisions related toosteoporosis. NOF guidelines suggest considering treatment for postmenopausal women and menaged 50 or older presenting with the following: History of hip or vertebral fracture. T-score = -2.5 (DXA) at the femoral neck, total hip, or spine, afterappropriate evaluation to exclude secondary causes. Low bone mass (T-score between -1.0 and -2.5 at the femoral neck or spine)AND a 10-year probability of a hip fracture = 3% OR a 10-year probability of a majorosteoporosis-related fracture = 20% based on the [place]-adapted WHO algorithm Please note that all treatment decisions require clinical judgment andconsideration of individual patient factors, including patient preferences, co- morbidities,previous drug use, risk factors not captured in the FRAX model (e.g., frailty, falls, vitaminD deficiency, increased bone turnover, interval significant decline in bone density) andpossible under- or over-estimation of fracture risk by FRAX. Optional alternative screening schedule based on magali Nolasco., NEJMJanuary 2011 for patients with osteopenia (based on hip BMD T-score) is as follows: * advanced osteopenia (T scores -2.00 to -2.49), BMD testing every year * moderate osteopenia (T scores -1.50 to -1.99), BMD testing every 5years mild osteopenia or normal BMD (T scores -1.50 and higher), BMD testingevery 15 years Sarah Chris OCCUPATIONAL THERAPIST'S ASSISTANT IMG DXA PROCEDURES Final Resul t * Hepatitis C Screening (12/22/2019) [facility] [place] Hepatitis C Screening abstracted Historical Provider MD HEALTH MAINTENANCE Final Result from Last 3 Months or Most Recently Relevant to Health Maintenance Insurance MEDICA[place] - [place] [employer] MEDICARE ADVANTAGE Care Teams [employer] Relationship Specialty Start Date End Date Colin Joyner MD [address] [place] [id number] PCP - General Internal Medicine 11/28/19
--- OUTSIDE RECORDS SUMMARY | 2025-05-29 14:47 | XMS_ITS | Data Portability ---
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 she reports mild redness and drainage lateral to the nail. area is tender to touch. she denies cp, sob, fever, chills, numbness. she has been doing epsom soaks at home, she is concerned as she is diabetic. she denies any injury or trauma. Vital Signs: BP 138/88, HR 78, RR 18, T 98.3, O2 98% RA Exam: pleasant 73 y/o female well appearing, alert NAD sitting on cough in her living room. mouth: moist mucous membranes no erythema, uvula is midline. no cervical lymphadenopathy. lungs: CTAB no wheezes rales or rhonchi. heart: RRR no murmur rubs or gallops. no peripheral edema. right foot: right great toe with mild edema and erythema lateral nail fold. + tenderness of lateral nail fold on palpation. scant serosanguinous drainage. slight warmth. ROM of the toes and foot is normal. strength is normal and equal bilaterally. sensation to light touch is normal bilaterally. DDx considered, with rationale: Necrotizing fasciitis: considered but no pain out of proportion, she is afebrile, no numbness. Osteomyelitis: considered but no bony tenderness on exam. she is afebrile. Ingrown toenail: considered due to recent cutting of her toenails but mild erythema, warmth on exam. Lymphangitis: considered but she is afebrile and no streaking erythema on exam. Results/ work up: N/A Proper Personal Protective Equipment (PPE), including gloves, eye protection and masks were donned and doffed appropriately and all equipment cleaned using approved technique with germicidal disposable wipes prior to and after care of this patient according to [facility]'s infection prevention protocols. [email or web address] Not available 03/10/2023 17:19:21 04/15/2023 04/15/2023 Time On Scene with Patient: 00:52:22 Brief Overview: 73 y/o female c/o intermittent pain on the tip of her tongue and dry mouth. she denies any rash, oral lesions, coating of her tongue. no facial edema, dysphagia, dysarthria, cp, sob, nausea, vomiting. no new meds or foods. she states currently she does not feel the pain. pt is diabetic reports she does not check her blood sugar regularly. Vital Signs: BP 134/62, HR 88, RR 18, T 98.1, O2 97% RA Exam: 73 y/o well appearing female, alert, NAD sitting on her couch. mouth: moist mucous membranes, no erythema, uvula is midline. no oral lesions or edema, coating of the tongue. DDx considered, with rationale: Thrush: considered but no erythema or coating on the tongue or mucous membranes. HSV: considered but no vesicular lesions or pain on exam. Anaphylaxis: considered but no skin rash, facial edema, cp, sob, dizziness, vomiting, vitals are stable. DKA: considered due to hyperglycemia and heavy glu in the urine, but no ketones in urine, she is asymptomatic. results/ work up: UA shows 4+ glucose, no ketones. fingerstick on scene with pt's glucometer is 536. Proper Personal Protective Equipment (PPE), including gloves, eye protection and masks were donned and doffed appropriately and all equipment cleaned using approved technique with germicidal disposable wipes prior to and after care of this patient according to [facility] infection prevention protocols. [email or web address] Not available 04/15/2023 17:19:22 Plan of Treatment Reminders Order Date Submit Date Provider Last Modified By Organization Details Last Modified Time Details Appointments None recorded. Lab urinalysis, dipstick 2022 023 [email or web address] [facility], [address], [place], [address], 11:50:34 Referral None recorded. Procedures None recorded. Surgeries None recorded. Imaging None recorded. Medication Orders cephalexin 500 mg tablet 2022 023 [facility][id number], [address] [facility] [place], [address], 11:26:38 Patient TargetsNo targets recorded. Patient Instructions Encounter Date Encounter Id Patient Instructions Last Modified By Organization Details Last Modified Time 03/10/2023 [id number] Thank you for yo ur visit with [facility] today. You may have had laboratory tests or cultures performed today. At this time, we do not feel that you have an infection that requires hospitalization. However, infections can get worse, even with antibiotics. If you have worsening redness, pain or fever, go immediately to the Emergency Department. Please follow up with your primary care provider or with the specialist referral you were given, within 12-24 hours to be re-examined. If you develop any new or worsening symptoms and need after hours care, please go to nearest ER and/or call 911. If you have additional concerns or develop a change in your condition between 8am-10pm, please call [facility] at [phone] to help navigate your care. Thank you for your [facility] with [facility] today. You were seen today for treatment of a wound. Please seek immediate medical attention if you develop increased pain, redness, or swelling of your wound. Also, you should be evaluated if the wound becomes warm to the touch, or if there is a cloudy, yellow-brown discharge from the wound. There is always the possibility of a hidden tendon injury or foreign object in the wound. If you have problems moving your arm or leg, or if you see red streaks up the arm or leg, seek immediate medical attention. If you develop any new or worsening symptoms and need after hours care, please go to nearest ER and/or call 911. If you have additional concerns or develop a change in your condition between 8am-10pm, please call [facility] at [phone] to help navigate your care. [email or web address] Not available 03/10/2023 17:25:25 04/15/2023 [id number] Thank you for yo ur visit with [facility] today. We cannot always find the exact cause of your symptoms during your initial visit. Please follow up with your primary care provider or specialist within 2-3 days to be rechecked or seek medical attention if your symptoms do not go away or get worse. If you develop any new or worsening symptoms and need after hours care, please go to nearest ER and/or call 911. If you have additional concerns or develop a change in your condition between 8am-10pm, please call [facility] at [phone] to help navigate your care. Please seek care or call your primary provider if the rash: 1. Worsens 2. Lasts longer than one week 3. Shows signs of local infection (redness, oozing, or swelling) 4. Occurs together with fever, chills, swollen glands, or other symptoms of infection 5. Looks dark purple or spotted 6. Occurs together with symptoms that suggest autoimmune disorder (recurring fever, malaise, fatigue, unexplained weight loss, or joint swelling) If you have additional concerns or develop a change in your condition between 8am-10pm, please call [facility] at [phone] to help navigate your care. [email or web address] Not available 04/15/2023 17:22:50 Reason for Referral None Reported. Results Created Date Observation Date Name Description Value Unit Range Abnormal Flag Note LastModifiedBy Organization Detail LastModifiedTime 04/15/20 23 04/15/2023 urina lysis , dipst ick Appearance clear Not Available [facility] [address] [place], [address], 04/15/2023 11:43:40 04/15/20 23 04/15/2023 urina lysis , dipst ick Color yellow Not Available [facility] [address] [place], [address], 04/15/2023 11:43:40 04/15/20 23 04/15/2023 urina lysis , dipst ick Glucose (ref: neg ++++ Not Available [facility] [address] [place], [address], 04/15/2023 11:43:40 04/15/20 23 04/15/2023 urina lysis , dipst ick Bilirubin (ref: neg) Neg Not Available [facility] [address] [place], [address], 04/15/2023 11:43:40 04/15/20 23 04/15/2023 urina lysis , dipst ick Ketones (ref: neg) Neg Not Available [facility] [address] [place], [address], 04/15/2023 11:43:40 04/15/20 23 04/15/2023 urina lysis , dipst ick Specific [place] (ref: 1.003 - 1.035) 1.010 Not Available [facility] [address] [place], [address], 04/15/2023 11:43:40 04/15/20 23 04/15/2023 urina lysis , dipst ick Blood (ref: neg) Neg Not Available [facility] [address] [place], [address], 04/15/2023 11:43:40 04/15/20 23 04/15/2023 urina lysis , dipst ick pH (ref: 5.0-7.0) 6.0 Not Available [facility] [address] [place], [address], 04/15/2023 11:43:40 04/15/20 23 04/15/2023 urina lysis , dipst ick Protein (ref: neg) Not Available [facility] [address] [place], [address], 04/15/2023 11:43:40 04/15/20 23 04/15/2023 urina lysis , dipst ick Urobilinogen (ref: 0.2-1.0) 0.2 Not Available [facility] [address] [place], [address], 04/15/2023 11:43:40 04/15/20 23 04/15/2023 urina lysis , dipst ick Nitrites (ref: neg) negati ve Not Available [facility] [address] [place], [address], 04/15/2023 11:43:40 04/15/20 23 04/15/2023 urina lysis , dipst ick Leukocytes (ref: neg) Neg Not Available [facility] [address] [place], [address], 04/15/2023 11:43:40 04/15/20 23 04/15/2023 urina lysis , dipst ick Location [facility], [address] [place] [address], [id number] Not Available [facility] [address] [place], [address], 04/15/2023 11:43:40 Result Notes None recorded. Medical Equipment None Reported. Allergies No known drug allergies Medications Name Sig Start Date Stop Date Status Note LastModified by Organization Details LastModified Time celecoxib 200 mg capsule TAKE 1 CAPSULE BY MOUTH EVERY DAY NEEDED FOR PAIN (WITH FLARES) 03/10 completed Not Available Not Available Not Available silver sulfadiazin e 1 % topical cream active Not Available Not Available Not Available primidone 50 mg tablet TAKE 1 TABLET BY MOUTH TWICE A DAY 03/10 completed Not Available Not Available Not Available bupropion HCl SR 150 mg tablet,12 hr sustained-r elease TAKE 1 TABLET BY MOUTH THREE TIMES A DAY active Not Available Not Available No t Available prednisone 10 mg tablet TAKE 4 TABLETS BY MOUTH EVERY DAY 03/10 completed Not Available Not Available Not Available tizanidine 4 mg tablet TAKE 2 TABLETS BY MOUTH 2 TIMES DAILY NEEDED FOR MUSCLE SPASMS. active Not Available Not Available No t Available sucralfate 100 mg/mL oral suspension TAKE 10ML BEFORE MEALS AND AT BEDTIME active Not Available Not Available No t Available prednisone 20 mg tablet TAKE 2 TAB BY MOUTH ONCE DAILY FOR 5 DAYS. 04/15 completed Not Available Not Available Not Available simvastatin 80 mg tablet TAKE 1 TABLET BY MOUTH EVERYDAY AT BEDTIME active Not Available Not Available No t Available valacyclovi r 500 mg tablet TAKE 1 TABLET BY MOUTH TWICE A DAY FOR 3 DAYS 03/10 completed Not Available Not Available Not Available aspirin 81 mg tablet,juaquin yed release TAKE 1 TABLET BY MOUTH EVERY DAY active Not Available Not Available No t Available propranolol 10 mg tablet TAKE 1 TABLET BY MOUTH EVERY DAY active Not Available Not Available No t Available famotidine 20 mg tablet TAKE 1 TABLET BY MOUTH TWICE A DAY active Not Available Not Available No t Available primidone 250 mg tablet TAKE 1 TABLET BY MOUTH THREE TIMES A DAY active Not Available Not Available No t Available benzonatate 100 mg capsule TAKE 1 CAPSULE BY MOUTH 2 TIMES DAILY NEEDED FOR COUGH FOR UP TO 7 DAYS. *N/C* 04/15 completed Not Available Not Available Not Available cephalexin 500 mg capsule TAKE 1 TABLET EVERY 8 HOURS BY ORAL ROUTE DIRECTED FOR 10 DAYS. 04/15 completed Not Available Not Available Not Available calcipotrie ne 0.005 % topical cream APPLY TO PSORIASIS TWICE DAILY THURSDAY THROUGH THURSDAY DIRECTED. active Not Available Not Available No t Available Gelusil Antacid and Anti-Gas 200 mg-200 mg-25 mg chewable tablet TAKE 3 TABLETS BY MOUTH 3 TIMES A DAY 03/10 completed Not Available Not Available Not Available lidocaine 5 % topical patch PLEASE SEE ATTACHED FOR DETAILED DIRECTION S active Not Available Not Available No t Available mupirocin calcium 2 % topical cream TO AFFECTED AREA 3 TIMES A DAY 04/15 completed Not Available Not Available Not Available sertraline 25 mg tablet TAKE 1 TABLET BY MOUTH EVERY DAY FOR 1 WEEK THEN TAKE 2 TABLETS DAILY 03/10 completed Not Available Not Available Not Available omeprazole 20 mg capsule,del ayed release TAKE 1 CAPSULE BY MOUTH EVERY DAY 03/10 completed Not Available Not Available Not Available cephalexin 500 mg tablet Take 1 tablet every 8 hours by oral route as directed for 10 days. 04/15 completed Not Available Not Available Not Available albuterol sulfate HFA 90 mcg/actuati on aerosol inhaler INHALE 2 PUFFS INTO THE LUNGS EVERY 4 HOURS NEEDED FOR COUGH, WHEEZING OR SHORTNESS OF BREATH. 03/10 completed Not Available Not Available Not Available propranolol 20 mg tablet TAKE 1 TABLET BY MOUTH AT BEDTIME. IN ADDITION TO 10 MG AM DOSE active Not Available Not Available No t Available ondansetron 4 mg disintegrat ing tablet TAKE 1 TABLET BY MOUTH EVERY 8 HOURS FOR NAUSEA 03/10 completed Not Available Not Available Not Available fluticasone propionate 50 mcg/actuati on nasal spray,suspe nsion USE 1 TO 2 SPRAYS INTO EACH NOSTRIL ONCE DAILY active Not Available Not Available No t Available metformin ER 500 mg tablet,exte nded release 24 hr TAKE 2 TABLETS BY MOUTH 2 TIMES DAILY (WITH MEALS) active Not Available Not Available No t Available lisinopril 2.5 mg tablet TAKE 1 TABLET BY MOUTH EVERY DAY active Not Available Not Available No t Available mometasone 0.1 % topical cream APPLY ONCE TO TWICE DAILY TO AREAS OF PSORIASIS FOR ONE TO TWO WEEKS AT A TIME. active Not Available Not Available No t Available Vitamin D3 25 mcg (1,000 unit) tablet TAKE 2 TABLETS BY MOUTH EVERY DAY active Not Available Not Available No t Available mirtazapine 7.5 mg tablet TAKE 1 TABLET BY MOUTH EVERYDAY AT BEDTIME active Not Available Not Available No t Available fenofibrate 160 mg tablet TAKE 1 TABLET BY MOUTH EVERY DAY active Not Available Not Available No t Available pregabalin 75 mg capsule TAKE 1 CAPSULE BY MOUTH TWICE A DAY 03/10 completed Not Available Not Available Not Available lisinopril 03/10 completed Not Available Not Available Not Available diclofenac 1 % topical gel APPLY 2 G TOPICALLY 2 TIMES DAILY NEEDED FOR OTHER (PAIN). active Not Available Not Available No t Available OneTouch Verio Flex Meter TO CHECK BLOOD SUGARS DAILY 03/10 completed Not Available Not Available Not Available OneTouch Delica Plus Lancing Device kit USE TO TEST BLOOD SUGAR TWICE DAILY / TEST FASTING AM AND 2 HOURS AFTER DINNER / DX: E11.29 03/10 completed Not Available Not Available Not Available Daily-Maribell (with folic acid) 400 mcg tablet TAKE 1 TABLET BY MOUTH EVERY DAY active Not Available Not Available No t Available Vitals Date Recorded Heart rate Body temperature Respiratory rate Oxygen saturation Oxygen saturation in Arterial blood by Pulse oximetry Systolic And Diastolic Provider Name and Address Organization Details Last Updated DateTime 3 78 /min 98.3 [degF] 18 /min 98 % 98 % 138/88 mm[Hg] Not Available [facility] 3 16:09:52 Date Recorded Heart rate Body temperature Oxygen saturation Oxygen saturation in Arterial blood by Pulse oximetry Respiratory rate Systolic And Diastolic Provider Name and Address Organization Details Last Updated DateTime 3 88 /min 98.1 [degF] 97 % 97 % 18 /min 134/62 mm[Hg] Not Available [facility] 3 11:38:16 Social History Question Answer Notes LastModified by [employer] Details LastModified Time Tobacco Smoking Status Never Smoker MARCE Carrasco [address], [place], [address], [place] [facility] 03/10/2023 16:14:52 Do You Have An Advance Directive? No [email or web address] Information not available 03/10/2023 What Is Your Code Status? Full Code [email or web address] Information not available 03/10/2023 Fall Risk: Do You Feel Unsteady When Standing Or Walking? No [email or web address] Information not available 03/10/2023 Excessive Alcohol Or Drug Use No [email or web address] Information not available 03/10/2023 Does This Patient Have A PCP? Yes [email or web address] Information not available 03/10/2023 Has The Patient Seen Their PCP In The Past 6 Months? Yes Information not available 03/10/2023 Is This Patient In Hospice? No [email or web address] Information not available 03/10/2023 ADL: Do You Need Help With Daily Activities Such As Bathing, Preparing Meals, Dressing, Or Cleaning? No [email or web address] Information not available 03/10/2023 Social Support: Do You Feel Safe? Yes [email or web address] Information not available 03/10/2023 What Is Your Housing Situation Today? I Have Housing [email or web address] Information not available 03/10/2023 Sex: Unknown Functional Status Question Answer Note LastModified by [employer] Details LastModified Time Do you use any illicit or recreational drugs? No [email or web address] Information not available 03/10/2023 What is your level of alcohol consumption? None [email or web address] Information not available 03/10/2023 Mental Status None recorded. Family History Relationship Description Onset Age of this Age Resolved Age Notes LastModified by Organization Details LastModified Time Father Malignant tumor of colon Not available 03/10 16:13:03 Mother Intracranial aneurysm [email or web address] Not available 03/10 16:13:17 Medical History Condition Response Diabetes Y Coronary Artery Disease N CHF N Parkinson's Disease N Cancer N Dementia N Stroke N Depression Y Asthma N COPD N Hypothyroidism N High Cholesterol Y Rheumatoid Arthritis N Pulmonary Embolism N Hypertension Y A-fib N Osteoporosis N Kidney Disease N Gynecological HistoryNo gynecological history recorded. Obstetrics History GPAL:G 0 P 0 0 0 0 Past Encounters Encounter ID Performer Location Encounter Start Date Encounter Closed Date Diagnosis/Indication Diagnosis SNOMED-CT Code Diagnosis ICD10 Code Diagnosis Note [id number] MARCE Carrasco [facility] [address] [facility], [place] [address] 03/10/2023 15:14:58 03/11/2023 13:20:57 Cellulitis 794224655 L03.90 Status of condition: Acute. Testing/Re sults: on exam right great toe with mild erythema and tenderness of lateral nail fold with scant serosangui nous discharge. Discussion :keep the area clean and dry.wash with soap and water.appl y otc bacitracin to affected area twice daily x 4-6 days.start Rx Cephalexin 500 mg 1 tab PO tid x 10 days take with food.take otc probiotic as directed on the package while on the antibiotic and for 1-2 weeks after.avoi d tight fitting shoes that will irritate the area further. Plan, Medication Management & Follow-up recommenda tions:foll ow up with pcp in 3-5 days or sooner prn.go to the ER with worsening symptoms cp, sob, fever, chills, nausea, vomiting, increased pain, redness, edema, drainage, numbness or change in skin color or temp. Type 2 ming betes mellitus [id number] E11.9 Status of condition: Chronic. Testing/Re sults: n/a Discussion :pt reports sugars have been controlled on metformin. she is asymptomat ic. Plan, Medication Management & Follow-up recommenda tions:foll ow up with pcp as scheduled on 03/16/23.go to the ER with worsening symptoms cp, sob, abdominal pain, dizziness, nausea, vomiting, weakness. Wound cellulitis [id number] L03.90 [id number] MARCE Carrasco [facility] [address] [facility] [place] [address] 04/15/2023 11:24:17 04/17/2023 09:46:13 Type 2 diabetes mellitus [id number] E11.9 Status of condition: Worsening/ Progressio n. Testing/Re sults: glucose on scene 536, UA 4+ glu no ketones. Discussion :pt reports sugars have been high and pcp increased her metformin. she does not check her sugars at home. pt also reports eating high carb diet (lots of pasta).she is asymptomat ic.must follow low carb ada diet, advised pt to get referral from pcp for nutritioni st, pt agrees.pt has glucometer . she was shown how to use the glucometer and instructed to check her sugar bid, fasting in the am and in evening 3 hours after eating. keep a log for pcp and log what you ate each day.some meds may cause dry mouth, pt advised exam of tongue is normal. advise she use her biotene mouth wash daily. Plan, Medication Management & Follow-up recommenda tions:foll ow up with pcp in 2-3 days.go to the ER with worsening symptoms cp, sob, abdominal pain, dizziness, nausea, vomiting, weakness, consistent ly high glucose 300 or above,visi on changes. Essential hypertension [id number] I10 Status of condition: Chronic. Testing/Re sults: BP 134/62 on scene. Discussion :BP controlled on current regimen. continue current meds as prescribed by pcp. Plan, Medication Management & Follow-up recommenda tions:foll ow up with pcp as scheduled. go to the ER with worsening symptoms cp, sob, dizziness, weakness, HAs, edema, vision changes. Health Concerns Section Related Observation LastModified by Organization Detai ls LastModified Time None Recorded Concern Status LastModified by Organization Details LastModified Time None Recorded Advance Directives Directive N: Payers Insurance Date Sequence Insurance Name Policy Number Policy Slater Covered Member ID Slater Member ID Guarantor Name 03/11/2023 1 [facility] [id number] Kiesha Kothari [id number] Pandora 03/09/2023 1 [facility] [id number] Kiesha Kothari [id number] Pandora 03/09/2023 1 *SELF PAY* Kiesha Kothari [id number] Pandora 03/09/2023 1 [facility] [id number] Kiesha Kothari [id number] Kiesha 05/01/2023 1 [facility] (MEDICARE REPLACEMENT/A DVANTAGE - PPO) [id number] Kiesha Kothari [id number] Kiesha Notes Date Note Type Note Provider Name and Address Organization Details Recorded Time 03/10/2023 text/html 73 y/o female ne w to and provider with hx of DM, depression, HTN, hyperlipidemia, GERD. pt reports right great toe pain x 5 days after she clipped her toe nails. area is tender to touch and slightly red, mild warmth. no fever, chills, cp, sob, dizziness, weakness. she denies any nausea, vomiting. she denies any injury. denies numbness. she has been doing epsom salt soaks at home. trying to wear shoes worsens the pain as they push against her toe. nothing has made the pain better. she denies any bleeding. she has not taken anything otc for pain. MARCE Carrasco [address], [place], [address], [place] [facility] 03/10/2023 17:26:54 04/15/2023 text/html 73 y/o female known to and known to provider with hx of depression, DM, hyperlipidemia, HTN, GERD. pt reports on and off for a few days now she has had very dry mouth and the tip of her tongue is painful at times. she currently is asymptomatic. she denies any new foods, meds. she has biotene mouth wash but does not use it often. she denies cp, sob, bonds, dizziness, weakness, lip, tongue, facial swelling/ rash. no white coating on the tongue. she denies lesions or canker sores on her tongue. she denies abdominal pain, nausea, vomiting, diarrhea. pt reports her pcp increased her metformin recently. pt does not check her sugar at home , last time she checked it was February and reading was 186. pt reports she ate macaroni salad 30 minutes prior to our arrival today. fingerstick on scene is 536. pt also reports over the past week she has eaten a whole box of spaghetti as she made it and her brother would not eat any of it. MARCE Carrasco [address], [place], [address], [place] [facility] 04/15/2023 17:23:06 OBGyn Episode No OBEpisode recorded.
== END 2025-05-29 14:47 | disposition home or self-care (01) ==
LOC: HO.HSM 13:56
PROVIDERS: PCP Internal Medicine; Referring Provider Internal Medicine; Visit Provider Registered Nurse
DX: G25.0 Essential tremor (principal); G62.9 Polyneuropathy, unspecified
CPT/HCPCS: 99214

== ENCOUNTER → 2025-05-29 13:55 | Outpatient (BNVA) | payer MEDICARE, SELFPAY | PROVIDERS: PCP Internal Medicine; Referring Provider Internal Medicine; Visit Provider Registered Nurse | DX: G25.0 Essential tremor (principal); G62.9 Polyneuropathy, unspecified | CPT/HCPCS: 99212 ==